=== PATIENT | female | born 1950 | race Caucasian/White ===

== ENCOUNTER 2020-01-14 08:00 | Outpatient (RCR) | payer MEDICARE, SELFPAY ==
--- NOTE | 2019-11-15 09:33 | PTOPEVAL ---
PHYSICAL THERAPY EVALUATION AND PLAN OF CARE Thank you for referring Lauren Joy to [facility]. I recommend Lauren participate in physical therapy 2x/week for 3-4weeks. Please review, sign, date and return this plan of care DENISE. I agree with and certify that the following plan of care is medically necessary. Referring Physician Date Attending Provider: Lokesh Rankin MD Evaluation Outpatient Past Medical History Cardiovascular History Hx Hypercholesterolemia Yes Musculoskeletal History Hx Other Musculoskeletal Disorders Yes: OA Endocrine History Hx Hypothyroidism Yes: memory deficit Evaluation Information Problem Diagnosis low back pain, right leg pain Onset 9 months ago Subjective Information Lauren is here today with c/o Query Text:As Reported By Patient/ right leg pain with low back Family pain. She noticed this about 2 months ago when she was walking with a group at a brisk pace and noted the onset of right leg pain. After first participating in therapy at a different facility she continued to experience pain and had x-rays of lumbar spine. She did have a steroid injection that assisted in reduced pain. Notes that the pain increases when walking fast and long and the pain decreases as soon as she sits. Self Report Pain Assessment Right Back Reported Pain Level 0 Pain Radiation Right Leg Pain Frequency Chronic,Intermittent Lowest Pain Intensity 0 Greatest Pain Intensity 6 Pain Aggravating Factors Walking Other Pain Aggravating Factors prolonged walking with increased speed Pain Behaviors None Pain Relief Interventions Used By Medication Patient Lumbar ROM Lumbar Flexion (0-90) 65 Query Text:Active in Degrees Lumbar Flexion Active Ankle Query Text:Hands to: Lumbar Extension (0-40) 20 Query Text:Active in Degrees Lateral Rotation Right (0-45) 30 Query Text:Active in Degrees Lateral Rotation Left (0-45) 40 Query Text:Active in Degrees Hip Strength Left Hip Flexion Strength 4+ Good + Hip Extension Strength 3+ Fair + Hip Abduction Strength 3 Fair Right Hip Flexion Strength 4+ Good + Hip Extension Strength 3- Fair -
--- NOTE | 2019-12-13 09:04 | PTOPEVAL ---
PHYSICAL THERAPY PROGRESS REPORT AND PLAN OF CARE UPDATE Thank you for referring Lauren Joy to [facility]. I recommend Lauren continue PT 2x/week for 4 weeks followed by re-assessment to determine further skilled needs. Please review, sign, date and return this plan of care DENISE. I agree with and certify that the following plan of care is medically necessary. Referring Physician Date Attending Provider: Lokesh Rankin MD Progress Diagnosis low back pain, right leg pain Onset 9 months ago Subjective Information Lauren reports she is doing much better at this time. She started to go back to the gym 2 days a week. She reports that she will feel better for about 3-4 days after therapy before she feels as though her walking starts to deteriorate and her pain starts to return. She is consistent with HEP and is willing to perform them more frequently if needed. Reports she has been walking about 15-20minutes a day, instructed to try to increase to 30minutes at a time, or a second set of 15minutes later in the day. Self Report Pain Assessment Right Back Reported Pain Level 0 Pain Description Tender on Palpation,Tightness Pain Radiation Right Leg Pain Frequency Chronic,Intermittent Pain Aggravating Factors Walking Pain Behaviors None Lumbar ROM Lumbar Flexion (0-90) 65 Lumbar Flexion Active Ankle Lumbar Extension (0-40) 20 Lateral Rotation Right (0-45) 35 Lateral Rotation Left (0-45) 40 Hip Strength Left Hip Flexion Strength 5 Normal Hip Extension Strength 4- Good - Hip Abduction Strength 3+ Fair + Right Hip Flexion Strength 5 Normal Hip Extension Strength 4- Good - Hip Abduction Strength 3 Fair Knee Strength Bilateral Knee Flexion Strength 5 Normal Knee Extension Strength 5 Normal Ankle Strength Bilateral Ankle Dorsiflexion Strength 5 Normal Posture Supine Position Posture Evaluation View Anterior Pelvis Posture Neutral Weight Distribution Balanced Palpation trigger points improved compared to initial visit but continues to be very tender; continues to demonstrates mild trigger points to gluteus medius, minimus, and distal/ proximal piriformis Special Test-Spine Lumbar Spine Special Tests Crossed Straight Leg Raise Test Negative Right,Negative Left Straight Leg Raise Test Negative Right,Negative Left Gait Pattern Trendelenburg Gait Gait Pattern Observed Trunk Lateral Lean - Right PT Clinical Summary Lauren is a 69 yo female
--- NOTE | 2020-01-14 08:33 | PTOPEVAL ---
PHYSICAL THERAPY DISCHARGE NOTE Thank you for referring Lauren Joy to [facility]. Please review, sign, date and return this plan of care DENISE. I agree with and certify that the following plan of care is medically necessary. Referring Physician Date Attending Provider: Lokesh Rankin MD Timing of Pain Assessment Pre-Treatment Self Report Self Report Pain Level 0 Cervical and Lumbar ROM Lumbar ROM Lumbar Flexion (0-90) 65 Lumbar Flexion Active Ankle Hands to: Lumbar Extension (0-40) 25 Lateral Rotation Right (0-45) 45 Lateral Rotation Left (0-45) 45 Hip Strength Left Hip Flexion Strength 5 Normal Hip Extension Strength 4+ Good + Hip Abduction Strength 3+ Fair + Right Hip Flexion Strength 5 Normal Hip Extension Strength 4+ Good + Hip Abduction Strength 3+ Fair + Knee Strength Bilateral Knee Flexion Strength 5 Normal Knee Extension Strength 5 Normal Ankle Strength Bilateral Ankle Dorsiflexion Strength 5 Normal Gait Pattern Assessment Gait Pattern No Deviations/Normal PT Clinical Summary Lauren is a 69 yo female participating in outpatient physical therapy. She reports only occasional episodes of right leg pain and she is able to manage the symptoms independently. She is compliant to HEP. I recommend discharge from PT at this time . PT Services Indicated Yes Rehabilitation Potential Good Potential Barriers to Goal Achievements None Support Requirements For Optimal None [place] Patient/Caregiver Informed of Benefits/ Yes Risks of Rehabilitation Patient/Caregiver Participated in Plan Yes of Care Patient/Caregiver Agreed with Problem Yes List/POC/Goals
== END 2020-01-18 13:11 | disposition home or self-care (01) ==
LOC: ANHPT 08:00
PROVIDERS: PCP Family Medicine; Visit Provider Orthopaedic Surgery
DX: M79.604 Pain in right leg (principal); M54.16 Radiculopathy, lumbar region; M54.5 Low back pain
CPT/HCPCS: 97110; 97140; 97161

== ENCOUNTER 2020-11-13 09:03 | Outpatient (CLI) | payer MEDICARE, SELFPAY ==
--- NOTE | ~2020-11-13 | US_ITS ---
EXAMINATION: US carotid duplex BI DATE: 11/13/2020 10:18 INDICATION: Syncope and collapse TECHNIQUE: Grayscale, color Doppler, and pulsed Doppler images of the cervical carotid arteries were obtained. The degree of vessel stenosis is placed in one of the following categories: normal, <50%, 5 0-69%, >=70% but less than near-occlusion, near-occlusion, or total occlusion. Note that percent sten osis relative to normal distal artery lumen diameter is indirectly measured from velocity measurement s as described by Robert, et al. Radiology 2003; 229:340-346. COMPARISON: None. FINDINGS: RIGHT: The right common carotid artery (CCA) peak systolic velocity (PSV) is 83 cm/s. The right internal car otid artery (ICA) PSV is 95 cm/s. The right ICA end-diastolic velocity (EDV) is 33 cm/s. The right IC A/CCA PSV ratio is 1.1. Grayscale and color Doppler images yield an estimate of <50% diameter reducti on from plaque in the ICA. The external carotid artery (ECA) PSV is 56 cm/s. There is antegrade flow in the right vertebral artery. LEFT: The left CCA PSV is 80 cm/s. The left ICA PSV is 69 cm/s. The left ICA EDV is 23 cm/s. The left ICA/C CA PSV ratio is 0.9. Grayscale and color Doppler images yield an estimate of <50% diameter reduction from plaque in the ICA. The ECA PSV is cm/s. There is antegrade flow in the left vertebral artery. IMPRESSION: 1. <50% stenosis in the right internal carotid artery. 2. <50% stenosis in the left internal carotid artery. Reviewed, dictated and finalized at location A.
--- NOTE | 2020-11-13 09:23 | ECHO_ITS ---
Patient Info Name: Lauren Joy Age: 70 years : 1950 Gender: Female Ht: 62 in Wt: 180 lbs BSA: 1.92 m2 HR: 59 bpm BP: 156 / 64 mmHg Technical Quality: Good Exam Date: 11/13/2020 9:26 AM Exam Location: [facility] Patient Status: Outpatient Admit Date: 11/13/2020 Staff Ordering Physician: Nano Felton NP Real Estate Analyst: CLAIRE Attending Provider: Nano Felton NP Referring Physician: Purnima DAVE; Exam Type: CA echo doppler color flow Study Info Indications I50.9 - Heart failure, unspecified Complete two-dimensional, color flow and Doppler transthoracic echocardiogram is performed. Summary 1. Complete two-dimensional, color flow and Doppler transthoracic echocardiogram is performed. 2. Left ventricular chamber dimension is normal. 3. Left ventricular systolic function is normal, estimated at 60-65%. 4. The left ventricular diastolic function is grade I diastolic dysfunction. 5. E/e' 9 is minimally elevated. 6. There is trace tricuspid valve regurgitation. 7. No pulmonary hypertension, estimated pulmonary arterial systolic pressure is 33 mmHg. Left Ventricle E/e' 9 is minimally elevated. Left ventricular chamber dimension is normal. Left ventricular systolic function is normal, estimated at 60-65%. The left ventricular diastolic function is grade I diastolic dysfunction. Right Ventricle Right ventricular chamber dimension is normal. Right ventricular systolic function is normal. Left Atria Left atrial chamber dimension is normal. Right Atria Right atrial chamber dimension is normal. Aortic Valve The aortic valve is trileaflet. There is no aortic valve stenosis. There is no aortic valve regurgitation. Pulmonic Valve There is no pulmonic regurgitation. Mitral Valve There is no mitral valve stenosis. There is no mitral valve regurgitation. Tricuspid Valve There is trace tricuspid valve regurgitation. No pulmonary hypertension, estimated pulmonary arterial systolic pressure is 33 mmHg. Pericardium/Pleural There is no pericardial effusion. Inferior Vena Cava Normal inferior vena cava with >50% collapse upon inspiration consistent with normal right atrial pressure, 5 mmHg. Aorta The aortic root size at the sinus of Valsalva is normal. Left Ventricular Outflow Tract Name Value Normal LVOT 2D LVOT Diameter 2.0 cm LVOT Doppler LVOT Peak Gradient 3 mmHg LVOT Mean Gradient 1 mmHg LVOT VTI 19 cm LVOT VTI/AV VTI Ratio 0.7 LVOT Stroke Volume 61 ml LVOT CO 4.1 l/min LVOT CI 2.1 l/min/m2 Pulmonic Valve Name Value Normal PV Doppler PV Peak Gradient 4 mmHg
== END 2020-11-13 09:04 | disposition home or self-care (01) ==
PROVIDERS: PCP Family Medicine; Visit Provider Nurse Practitioner Family
DX: R55 Syncope and collapse (principal); I65.23 Occlusion and stenosis of bilateral carotid arteries; I50.9 Heart failure, unspecified
CPT/HCPCS: 93306; 93880

== ENCOUNTER 2021-02-02 10:38 | Outpatient (CLI) | payer MEDICARE, SELFPAY ==
--- NOTE | 2021-02-06 10:31 | WPDNEUROLOGY ---
Neurology EEG Report General Information Date of Study: 02/02/21 TEST eeg DIAGNOSIS syncope and collapse CONDITION OF RECORDING awake and drowsy EEG NUMBER [id number] CLINICAL HISTORY patient reported she loss consciousness a couple of months ago. Became lightheaded and then was unconscious for about 6 minutes. EEG DESCRIPTION Whole record consists of low-voltage 15 to 21 hertz per 2nd beta during drowsiness with bilateral symmetrical sleep spindles during later stages of sleep. Photic stimulation produced poor drive. Hyperventilation not done. Non paroxysmal. Nonfocal. Nonlateralizing. IMPRESSION No significant abnormalities noted
== END 2021-02-02 10:39 | disposition home or self-care (01) ==
PROVIDERS: PCP Family Medicine; Visit Provider Psychiatry & Neurology Neurology
DX: R55 Syncope and collapse (principal)
CPT/HCPCS: 95816

== ENCOUNTER 2021-02-03 07:27 | Outpatient (CLI) | payer MEDICARE, SELFPAY ==
--- NOTE | ~2021-02-03 | MR_ITS ---
EXAMINATION: MR brain/brain stem wo con DATE: 02/03/2021 08:33 INDICATION: Syncope and collapse TECHNIQUE: Magnetic resonance imaging (MRI) of the brain and brainstem was performed without intraven ous contrast. Sequences included sagittal and axial T1-weighted SE, axial diffusion-weighted FS SE, a xial T2*-weighted GRE, axial T2-weighted FLAIR, and axial T2-weighted FSE. Apparent diffusion coeffic ient (ADC) maps were created. COMPARISON: None. FINDINGS: There are no areas of restricted diffusion to suggest acute infarction. No intracranial hemorrhage or abnormal intracranial mass lesion. There are scattered areas of nonspecific increased T2-weighted si gnal intensity in the cerebral white matter, predominantly involving the deep and periventricular whi te matter is within normal limits for age. Prominent perivascular space at the inferior aspect of the left basal ganglia. There are no intraparenchymal signal abnormalities seen on the other pulse seque nces. The ventricles are symmetric and normal in size. There are no abnormal extra-axial fluid collec tions. Flow voids are seen in the cerebral arteries on the T2-weighted sequences consistent with thei r expected patency. Left vertebral artery is dominant. Mild mucosal thickening the bilateral ethmoid sinuses. Small left mastoid effusion. Visualized orbits and soft tissues are unremarkable. IMPRESSION: 1. A few small scattered periventricular predominant T2 hyperintense white matter lesions which is wi thin normal limits for age and likely sequela of chronic small vessel ischemic disease. No acute intr acranial process. Reviewed, dictated and finalized at location A. IMPRESSION: 1. A few small scattered periventricular predominant T2 hyperintense white rob er lesions which is within normal limits for age and likely sequela of chronic small vessel ischemic disease. No acute intracranial process.
== END 2021-02-03 07:28 | disposition home or self-care (01) ==
PROVIDERS: PCP Family Medicine; Visit Provider Psychiatry & Neurology Neurology
DX: R55 Syncope and collapse (principal)
CPT/HCPCS: 70551

== ENCOUNTER 2021-07-16 09:50 | Outpatient (CLI) | payer MEDICARE, SELFPAY ==
--- NOTE | ~2021-07-16 | US_ITS ---
EXAMINATION: US abdomen limited DATE: 07/16/2021 10:25 INDICATION: Other specified diseases of liver. TECHNIQUE: Multiple grayscale and Doppler ultrasound images of the abdomen were obtained. COMPARISON: None FINDINGS: The visualized portions of the head, body, and tail of the pancreas are normal. There is a 4.8 cm cyst in the liver with thick hyperechoic septum. No liver surface nodularity. The gallbladder is absent. The common duct is normal and measures 4 mm. IMPRESSION: 1. 4.8 cm cystic mass in the liver, probably benign. Abdomen MRI without and with contrast is recomme nded. Reviewed, dictated and finalized at location B. MIC PROSPECTING OBSERVER HELPER IMPRESSION: 1. 4.8 cm cystic mass in the liver, probably benign. Abdomen MRI without and wi th contrast is recommended.
--- NOTE | ~2021-07-16 | MR_ITS ---
EXAMINATION: MR lumbar spine wo con EXAM DATE: 07/16/2021 10:50 INDICATION: R20.0 - Anesthesia of skin . Right leg below-knee tingling, numbness into foot. Symptoms 3 months. TECHNIQUE: Multi-sequential, multiplanar MR images of the lumbar spine were obtained without contrast . Sagittal T1, T2, T2 fat saturation images. Axial T2 weighted images. There is no prior study for comparison. FINDINGS: There is moderate disc disease at all L1-L5, mild to moderate at L5-S1 with 3 mm anterolist hesis. The conus medullaris terminates at the L1/2 level and has normal signal intensity and morpholo gy. Paraspinal soft tissue is unremarkable. Level by level evaluation: T12-L1: Disc does not extend beyond the endplate margin. Facet arthropathy: Mild. Neural foraminal stenosis: No stenosis. Central canal stenosis: No stenosis. L1-L2: There is a mild to moderate diffuse disc bulge. Facet arthropathy: Mild. Neural foraminal stenosis: Mild left. Central canal stenosis: Mild. L2-L3: There is a mild to moderate diffuse disc bulge. Facet arthropathy: Mild to moderate. Neural foraminal stenosis: Mild bilateral. Central canal stenosis: Mild. L3-L4: There is a mild to moderate diffuse disc bulge. Facet arthropathy: Mild to moderate. Neural foraminal stenosis: Mild bilateral. Central canal stenosis: Mild. L4-L5: There is a moderate diffuse disc bulge. Facet arthropathy: Mild to moderate. Neural foraminal stenosis: Moderate left, mild to moderate right. Central canal stenosis: Mild to moderate. L5-S1: There is a mild to moderate diffuse disc bulge. Facet arthropathy: Moderate to severe right, moderate left. Neural foraminal stenosis: Mild bilateral. Central canal stenosis: Mild to moderate. IMPRESSION: 1. Overall moderate lumbar spondylosis. Reviewed, dictated and finalized at location A. IR WELDER
== END 2021-07-16 09:51 | disposition home or self-care (01) ==
PROVIDERS: PCP Family Medicine; Visit Provider Nurse Practitioner Family
DX: K76.89 Other specified diseases of liver (principal); R20.0 Anesthesia of skin; M47.896 Other spondylosis, lumbar region
CPT/HCPCS: 72148; 76705

== ENCOUNTER 2021-07-19 09:36 | Outpatient (CLI) | payer MEDICARE, SELFPAY ==
--- NOTE | ~2021-07-19 | MR_ITS ---
EXAMINATION: MR abdomen wo/w con DATE: 07/19/2021 10:39 INDICATION: Liver mass. TECHNIQUE: Magnetic resonance imaging (MRI) of the abdomen was performed without and with 15 mL Multi Radha intravenous contrast. Sequences included coronal T2-weighted FS FSE, coronal and axial FS FIEST A, axial T2-weighted FSE, coronal LAVA-flex, axial STIR FSE, axial DWI, axial dual-echo T1-weighted F SPGR, and axial LAVA. Postcontrast sequences included coronal LAVA-flex and a time course of axial LA VA. COMPARISON: Abdomen ultrasound 07/16/2021 FINDINGS: There are cysts in the liver measuring up to 4.5 cm. No enhancing solid component. The gallbladder is absent. The spleen, pancreas, and adrenal glands are normal. There are cysts in the kidneys measurin g up to 9 mm on the left. There are no dilated loops of bowel. There are no pathologically enlarged l ymph nodes. There is no free intraperitoneal fluid. IMPRESSION: 1. Benign cysts in the liver. Reviewed, dictated and finalized at location B. ASTER
[2021-07-19 10:01] LABS: Estimated Glomerular Filt Rate > 60
== END 2021-07-19 09:37 | disposition home or self-care (01) ==
PROVIDERS: PCP Family Medicine; Visit Provider Nurse Practitioner Family
DX: K76.89 Other specified diseases of liver (principal)
CPT/HCPCS: 74183; A9577

== ENCOUNTER 2022-04-01 15:15 | Outpatient (CLI) | payer MEDICARE, SELFPAY ==
--- NOTE | ~2022-04-01 | DEXA_ITS ---
Bone Density Report Name: JEFERSON YOUNGBLOOD Age: 72 Sex: Female Ethnicity: White Date of : 1950 Indication: postmenopausal; screening for osteoporosis; height loss; Referring Provider: ZEUS DODD Study: Bone densitometry was performed. Exam Date: April 01, 2022 Accession number: [id number] Bone Density: Region BMD T-score Z-score Classification AP Spine(L1-L4) 1.245 1.8 3.9 Normal Femoral Neck (Left) 0.797 -0.5 1.3 Normal Total Hip (Left) 0.993 0.4 1.9 Normal Femoral Neck (Right) 0.813 -0.3 1.5 Normal Total Hip (Right) 1.001 0.5 2.0 Normal Total Hip Mean 0.997 0.5 2.0 Normal World Health Organization criteria for BMD impression classify patients as: Normal (T-score at or above -1.0), Osteopenia (T-score between -1.0 and -2.5), or Osteoporosis (T-score at or below -2.5). 10-year Fracture Risk: FRAX not reported because: All T-scores for Spine Total, Hip Total, Femoral Neck at or above -1.0 Clinical Information Provided by Patient: Patient maximum height was 63 Menopause Age: 52 Onset of menses at age 15 Number of children 2 Impression: The patient has normal bone mass. Discussion: BONE DENSITY IS ABOVE THE MINIMUM DESIRABLE LEVEL AT ALL SKELETAL SITES TESTED. This patient?s bone mineral density is above the minimum desirable level (T-score -1.0 or better) at all sites measured. The patient should follow a healthful lifestyle (good nutrition with adequate calcium and vitamin D, and appropriate weight-bearing exercise). Follow-Up: Consider repeating this study in 5 years or sooner if there is some new clinical indication. Reported by: MILTON on 04/01/2022 3:33:00 PM. Reviewed, dictated and finalized at location AKaren [facility]
== END 2022-04-01 15:16 | disposition home or self-care (01) ==
LOC: ANHIMG 15:17
PROVIDERS: PCP Nurse Practitioner Family; Visit Provider Nurse Practitioner Family
DX: Z78.0 Asymptomatic menopausal state (principal)
CPT/HCPCS: 77080

== ENCOUNTER 2022-04-15 11:05 | Outpatient (CLI) | payer MEDICARE, SELFPAY ==
--- NOTE | ~2022-04-15 | US_ITS ---
EXAMINATION: US thyroid DATE: 04/15/2022 11:47 INDICATION: Nontoxic goiter TECHNIQUE: Multiple ultrasound images of the thyroid were obtained. COMPARISON: None. FINDINGS: The right thyroid lobe measures 4.2 x 1.3 x 3.8 cm. The left thyroid lobe measures 3.9 x 1.2 x 1.4 c m. There is normal echotexture and echogenicity throughout the thyroid gland. 4 x 2 x 2 mm cystic, h ypoechoic, slightly lobulated right thyroid lesion without calcifications (TR 3). Normal vascular vilma w is present. IMPRESSION: 4 mm right thyroid cyst of doubtful clinical significance. No FNA or follow-up recommended. Reviewed, dictated and finalized at location K.
== END 2022-04-15 11:06 | disposition home or self-care (01) ==
PROVIDERS: PCP Family Medicine; Visit Provider Nurse Practitioner
DX: E04.9 Nontoxic goiter, unspecified (principal); E03.9 Hypothyroidism, unspecified
CPT/HCPCS: 76536

== ENCOUNTER 2022-08-29 07:22 | Outpatient (CLI) | payer MEDICARE, SELFPAY ==
--- NOTE | ~2022-08-29 | MR_ITS ---
MRI of the brain Clinical History: Memory loss Technique: Axial and sagittal T1-weighted images were acquired. These were followed by axial T2-weigh nadine, diffusion weighted, gradient, and FLAIR images. COMPARISON: 02/03/2021 Findings: There is no acute infarct, intracranial hemorrhage, or mass lesion. Minimal chronic white m atter changes are present in the periventricular white matter, predominantly in the frontal lobes. Ventricles and subarachnoid spaces are unremarkable. Orbits are unremarkable. Paranasal sinuses and m astoid air cells are clear. Major intracranial flow voids are intact. Sagittal midline structures are intact. IMPRESSION: No acute abnormality. Mild chronic white matter changes, as above. Reviewed, dictated and finalized at location M. SPORTATION ECONOMICS TEACHER
== END 2022-08-29 07:23 | disposition home or self-care (01) ==
PROVIDERS: PCP Family Medicine; Visit Provider Nurse Practitioner
DX: R41.3 Other amnesia (principal); R93.0 Abnormal findings on diagnostic imaging of skull and head, not elsewhere classified
CPT/HCPCS: 70551

== ENCOUNTER 2023-09-01 10:55 | Outpatient (CLI) | payer MEDICARE, SELFPAY ==
--- NOTE | ~2023-09-01 | US_ITS ---
EXAMINATION: US thyroid DATE: 09/01/2023 11:28 INDICATION: Nontoxic single thyroid nodule. TECHNIQUE: Multiple ultrasound images of the thyroid were obtained. COMPARISON: Ultrasound 04/15/2022 FINDINGS: The right thyroid lobe measures 4.8 x 1.0 x 1.2 cm. The left thyroid lobe measures 4.3 x 1.5 x 1.1 c m. There are a few nodules in the thyroid measuring up to 4 mm. IMPRESSION: 1. Small thyroid nodules, likely not clinically significant. No follow-up is needed. Reviewed, dictated and finalized at location A. LIANCE OFFICER IMPRESSION: 1. Small thyroid nodules, likely not clinically significant. No follow-up is ne eded.
== END 2023-09-01 10:56 | disposition home or self-care (01) ==
PROVIDERS: PCP Family Medicine; Visit Provider Otolaryngology
DX: E04.2 Nontoxic multinodular goiter (principal)
CPT/HCPCS: 76536